=== PATIENT | female | born 1960 | race Hispanic/Latino ===

== ENCOUNTER 2017-08-12 15:54 | Emergency (ER) | payer SELFPAY ==
[2017-08-12] MEDS ORDERED: KETOROLAC TROMETHAMINE 30MG/ML ONE (16:34)
== END 2017-08-12 18:22 | disposition home or self-care (01) ==
LOC: EDH 15:54
DX: S63.591A Other specified sprain of right wrist, initial encounter (principal); S30.0XXA Contusion of lower back and pelvis, initial encounter; E11.9 Type 2 diabetes mellitus without complications; E78.5 Hyperlipidemia, unspecified; Z79.4 Long term (current) use of insulin; W01.0XXA Fall on same level from slipping, tripping and stumbling without subsequent striking against object, initial encounter; Y93.89 Activity, other specified; Y92.89 Other specified places as the place of occurrence of the external cause; Y99.8 Other external cause status
CPT/HCPCS: 72100; 73110; 96372; 99284; J1885

== ENCOUNTER 2017-08-29 21:27 | Emergency (ER) | payer SELFPAY ==
[2017-08-29] MEDS ORDERED: ONDANSETRON ODT 4 MG TAB ONE (22:20)
[2017-08-29] MEDS ORDERED: IPRATROPIUM/ALBUTEROL SULFATE 3 ML SOLUTION IH ONE (22:31)
== END 2017-08-29 23:05 | disposition home or self-care (01) ==
LOC: EDH 21:27
DX: J06.9 Acute upper respiratory infection, unspecified (principal); E11.9 Type 2 diabetes mellitus without complications; E78.5 Hyperlipidemia, unspecified; Z79.4 Long term (current) use of insulin
CPT/HCPCS: 71045; 87804; 93005; 94640

== ENCOUNTER 2018-04-24 21:01 | Emergency (ER) | payer SELFPAY ==
[2018-04-24] MEDS ORDERED: MAG HYDROX/AL HYDROX/SIMETH ES 30 ML SUSP UDCUP ONE (21:21)
[2018-04-24] MEDS ORDERED: BENZONATATE 100 MG CAPSULE PO ONE (21:21)
[2018-04-24] MEDS ORDERED: IPRATROPIUM/ALBUTEROL SULFATE 3 ML SOLUTION IH ONE (21:21)
[2018-04-24 21:44] LABS: BASOPHILS % (AUTO) 0.6 % (0.0-5.0); EOSINOPHILS % (AUTO) 2.3 % (0.0-8.0); HEMATOCRIT 37.4 % (36-48); LYMPHOCYTES % (AUTO) 35.8 % (21.0-51.0); MEAN CORPUSCULAR HEMOGLOBIN 33.3 pg (27.0-33.0); MEAN CORPUSCULAR HGB CONC 34.8 g/dL (32.0-36.0); MEAN CORPUSCULAR VOLUME 95.7 fL (79-99); MONOCYTES % (AUTO) 5.3 % (3.0-13.0); NUCLEATED RED BLOOD CELLS 0.1 % (0.0-0.19); PLATELET COUNT (AUTO) 236 K/uL (130-400); RED BLOOD CELL COUNT(AUTO) 3.91 MIL/uL (4.00-5.50); RED CELL DISTRIBUTION WIDTH 13.3 % (11.0-15.5); WHITE BLOOD COUNT (AUTO) 6.2 K/uL (4.8-10.8)
[2018-04-24 22:01] LABS: ALBUMIN 3.1 g/dL (3.5-5.0); BILIRUBIN,TOTAL 0.2 mg/dL (0.2-1.0); CREATININE 0.9 mg/dL (0.5-1.5); POTASSIUM 4.2 mmol/L (3.5-5.1); TOTAL PROTEIN, SERUM 8.2 g/dL (6.0-8.3)
[2018-04-24] MEDS ORDERED: IBUPROFEN 200 MG TAB ONE (22:34)
[2018-04-24] MEDS ORDERED: INSULIN HUMULIN R 100 UNIT/ML 3ML ONE (22:49)
== END 2018-04-25 00:46 | disposition home or self-care (01) ==
LOC: EDH 21:01
DX: R07.89 Other chest pain (principal); R05 Cough; J02.9 Acute pharyngitis, unspecified; R10.30 Lower abdominal pain, unspecified; E11.9 Type 2 diabetes mellitus without complications; E78.5 Hyperlipidemia, unspecified
CPT/HCPCS: 36415; 71045; 80053; 82948; 84484; 85025; 87880; 93005; 94640; 96374; 99285; J1815

== ENCOUNTER 2018-06-08 17:03 | Emergency (ER) | payer OTHER ==
[2018-06-08] MEDS ORDERED: LIDOCAINE HCL MPF 1% 5ML VIAL ONE (17:24)
== END 2018-06-08 18:03 | disposition home or self-care (01) ==
LOC: EDH 17:03
DX: N76.4 Abscess of vulva (principal); E11.9 Type 2 diabetes mellitus without complications; E78.5 Hyperlipidemia, unspecified; Z79.4 Long term (current) use of insulin
CPT/HCPCS: 56405; 99284; J3490

== ENCOUNTER 2018-10-03 20:09 | Emergency (ER) | payer OTHER ==
[2018-10-03 20:37] LABS: BASOPHILS % (AUTO) 0.5 % (0.0-5.0); EOSINOPHILS % (AUTO) 3.4 % (0.0-8.0); HEMATOCRIT 38.4 % (36-48); LYMPHOCYTES % (AUTO) 41.2 % (21.0-51.0); MEAN CORPUSCULAR HEMOGLOBIN 32.7 pg (27.0-33.0); MEAN CORPUSCULAR HGB CONC 34.6 g/dL (32.0-36.0); MEAN CORPUSCULAR VOLUME 94.5 fL (79-99); MONOCYTES % (AUTO) 8.2 % (3.0-13.0); NEUTROPHILS % (AUTO) 46.7 % (40.0-77.0); NUCLEATED RED BLOOD CELLS 0.2 % (0.0-0.19); PLATELET COUNT (AUTO) 178 K/uL (130-400); RED BLOOD CELL COUNT(AUTO) 4.06 MIL/uL (4.00-5.50); RED CELL DISTRIBUTION WIDTH 12.9 % (11.0-15.5); WHITE BLOOD COUNT (AUTO) 5.3 K/uL (4.8-10.8)
[2018-10-03 20:57] LABS: INR 0.92 (0.85-1.15); PARTIAL THROMBOPLASTIN TIME 24.5 SEC (26.3-35.5); PROTHROMBIN TIME 9.7 SEC (9.6-11.6)
[2018-10-03 22:07] LABS: CREATININE 0.7 mg/dL (0.5-1.5); POTASSIUM 4.6 mmol/L (3.5-5.1)
[2018-10-03] MEDS ORDERED: LORAZEPAM 2 MG/ML 1 ML VIAL ONE (22:07)
[2018-10-03] MEDS ORDERED: ONDANSETRON HCL 4 MG/2 ML VIAL ONE (22:07)
[2018-10-03] MEDS ORDERED: MORPHINE SULFATE 2 MG/ML 1ML SYG ONE (22:08)
[2018-10-03 22:17] LABS: ALBUMIN 3.6 g/dL (3.5-5.0); BILIRUBIN,TOTAL 0.3 mg/dL (0.2-1.0); TOTAL PROTEIN, SERUM 8.1 g/dL (6.0-8.3)
== END 2018-10-04 01:20 | disposition home or self-care (01) ==
LOC: EDH 20:09
DX: R07.89 Other chest pain (principal); F41.9 Anxiety disorder, unspecified; E11.9 Type 2 diabetes mellitus without complications; E78.5 Hyperlipidemia, unspecified
CPT/HCPCS: 36415; 71045; 80053; 82550; 83874; 84484 ×2; 85025; 85610; 85730; 93005 ×2; 96374; 96375 ×2; 99284; J2060; J2405

== ENCOUNTER 2018-12-21 12:36 | Emergency (ER) | payer OTHER ==
[2018-12-21] MEDS ORDERED: PROCHLORPERAZINE EDISYLATE 10 MG/2 ML VIAL ONE (13:05)
[2018-12-21] MEDS ORDERED: DIAZEPAM 5 MG TABLET ONE (13:06)
[2018-12-21 14:03] LABS: BASOPHILS % (AUTO) 0.6 % (0.0-5.0); EOSINOPHILS % (AUTO) 2.4 % (0.0-8.0); LYMPHOCYTES % (AUTO) 44.1 % (21.0-51.0); MEAN CORPUSCULAR HEMOGLOBIN 32.7 pg (27.0-33.0); MEAN CORPUSCULAR HGB CONC 34.4 g/dL (32.0-36.0); MEAN CORPUSCULAR VOLUME 95.1 fL (79-99); MONOCYTES % (AUTO) 9.8 % (3.0-13.0); NEUTROPHILS % (AUTO) 43.1 % (40.0-77.0); NUCLEATED RED BLOOD CELLS 0.2 % (0.0-0.19); PLATELET COUNT (AUTO) 218 K/uL (130-400); RED CELL DISTRIBUTION WIDTH 12.8 % (11.0-15.5); WHITE BLOOD COUNT (AUTO) 6.5 K/uL (4.8-10.8)
[2018-12-21 14:06] LABS: CREATININE 0.8 mg/dL (0.5-1.5); POTASSIUM 3.7 mmol/L (3.5-5.1)
[2018-12-21 14:11] LABS: ALBUMIN 3.2 g/dL (3.5-5.0); BILIRUBIN,TOTAL 0.5 mg/dL (0.2-1.0); TOTAL PROTEIN, SERUM 8.2 g/dL (6.0-8.3)
== END 2018-12-21 15:45 | disposition home or self-care (01) ==
LOC: EDH 12:36
DX: R51 Headache (principal); E11.9 Type 2 diabetes mellitus without complications; E78.5 Hyperlipidemia, unspecified; Z79.4 Long term (current) use of insulin
CPT/HCPCS: 36415; 80053; 82948 ×2; 85025; 96372; 99284; J0780

== ENCOUNTER 2019-01-08 14:53 | Emergency (ER) | payer SELFPAY ==
[2019-01-08 15:13] LABS: PLATELET COUNT (AUTO) 162 K/uL (130-400)
[2019-01-08 15:21] LABS: POTASSIUM 3.7 mmol/L (3.5-5.1)
[2019-01-08 15:26] LABS: ALBUMIN 3.5 g/dL (3.5-5.0); BILIRUBIN,TOTAL 0.4 mg/dL (0.2-1.0); TOTAL PROTEIN, SERUM 8.3 g/dL (6.0-8.3)
[2019-01-08 15:49] LABS: BASOPHILS % (AUTO) 0.7 % (0.0-5.0); EOSINOPHILS % (AUTO) 2.4 % (0.0-8.0); HEMATOCRIT 39.1 % (36-48); LYMPHOCYTES % (AUTO) 38.3 % (21.0-51.0); MEAN CORPUSCULAR HEMOGLOBIN 33.5 pg (27.0-33.0); MEAN CORPUSCULAR HGB CONC 34.7 g/dL (32.0-36.0); MEAN CORPUSCULAR VOLUME 96.6 fL (79-99); MONOCYTES % (AUTO) 7.2 % (3.0-13.0); NEUTROPHILS % (AUTO) 51.4 % (40.0-77.0); NUCLEATED RED BLOOD CELLS 0.2 % (0.0-0.19); RED BLOOD CELL COUNT(AUTO) 4.05 MIL/uL (4.00-5.50); RED CELL DISTRIBUTION WIDTH 12.9 % (11.0-15.5); WHITE BLOOD COUNT (AUTO) 4.6 K/uL (4.8-10.8)
[2019-01-08 15:50] LABS: INR 0.94 (0.85-1.15); PARTIAL THROMBOPLASTIN TIME 24.1 SEC (26.3-35.5); PROTHROMBIN TIME 9.9 SEC (9.6-11.6)
[2019-01-08] MEDS ORDERED: KETOROLAC TROMETHAMINE 30MG/ML ONE (16:11)
[2019-01-08] MEDS ORDERED: CYCLOBENZAPRINE HCL 10 MG TABLET ONE (16:11)
[2019-01-08] MEDS ORDERED: TRAMADOL HCL 50 MG TABLET ONE (16:12)
[2019-01-08] MEDS ORDERED: SODIUM CHLORIDE 0.9% 1000ML 1,000 ML IV ONE (16:12)
== END 2019-01-08 16:52 | disposition home or self-care (01) ==
LOC: EDH 14:53
DX: M25.512 Pain in left shoulder (principal); E11.65 Type 2 diabetes mellitus with hyperglycemia; E78.5 Hyperlipidemia, unspecified
CPT/HCPCS: 36415; 71045; 72125; 73030; 80053; 82550; 84484; 85025; 85610; 85730; 93005; 96361; 96374; 99285; J1885; J7030

== ENCOUNTER 2019-02-07 13:04 | Emergency (ER) | payer SELFPAY | END 2019-02-07 14:02 | disposition home or self-care (01) | LOC: EDH 13:04 | DX: M94.0 Chondrocostal junction syndrome [Tietze] (principal); J06.9 Acute upper respiratory infection, unspecified; E11.9 Type 2 diabetes mellitus without complications; E78.5 Hyperlipidemia, unspecified; Z98.890 Other specified postprocedural states ==

== ENCOUNTER 2019-09-01 15:15 | Emergency (ER) | payer SELFPAY ==
[2019-09-01 15:47] LABS: BASOPHILS % (AUTO) 0.7 % (0.0-5.0); HEMATOCRIT 35.4 % (36-48); LYMPHOCYTES % (AUTO) 47.3 % (21.0-51.0); MEAN CORPUSCULAR HEMOGLOBIN 31.5 pg (27.0-33.0); MEAN CORPUSCULAR HGB CONC 33.9 g/dL (32.0-36.0); MEAN CORPUSCULAR VOLUME 92.9 fL (79-99); MONOCYTES % (AUTO) 6.8 % (3.0-13.0); PLATELET COUNT (AUTO) 175 K/uL (130-400); RED BLOOD CELL COUNT(AUTO) 3.81 MIL/uL (4.00-5.50); RED CELL DISTRIBUTION WIDTH 12.5 % (11.0-15.5); WHITE BLOOD COUNT (AUTO) 4.3 K/uL (4.8-10.8)
[2019-09-01 15:58] LABS: CARBON DIOXIDE 26 mmol/L (21-32); CHLORIDE 104 mmol/L (101-111); CREATININE 0.9 mg/dL (0.5-1.5); GLOMERULAR FILTR. RATE CALC 68 mL/min (>60); GLUCOSE,RANDOM 279 mg/dL (70-105); POTASSIUM 3.7 mmol/L (3.5-5.1); SODIUM SERUM 139 mmol/L (136-145); UREA NITROGEN, BLOOD 18 mg/dL (7-18)
[2019-09-01 16:02] LABS: ALANINE AMINOTRANSFERASE 64 U/L (12-78); ALBUMIN 3.1 g/dL (3.5-5.0); ASPARTATE AMINOTRANSFERASE 55 U/L (10-37); BILIRUBIN,TOTAL 0.4 mg/dL (0.2-1.0); TOTAL PROTEIN, SERUM 7.8 g/dL (6.0-8.3)
[2019-09-01 16:31] LABS: CRP QUANTITATIVE < 2.00 mg/L (0.00-9.0)
== END 2019-09-01 17:41 | disposition home or self-care (01) ==
LOC: EDH 15:15
DX: M77.9 Enthesopathy, unspecified (principal); E11.9 Type 2 diabetes mellitus without complications; E78.5 Hyperlipidemia, unspecified; Z98.890 Other specified postprocedural states
CPT/HCPCS: 29125; 36415; 73130; 80053; 84550; 85025; 85651; 86140

== ENCOUNTER 2021-01-06 18:37 | Emergency (ER) | payer SELFPAY ==
[2021-01-06 19:03] LABS: APPEARANCE,URINE Clear (CLEAR); BILIRUBIN,URINE Negative (NEGATIVE); COLOR,URINE Yellow (YELLOW); GLUCOSE, URINE (UA) >=1000 mg/dL (NEGATIVE); KETONES,URINE Negative (NEGATIVE); LEUKOCYTE ESTERASE ,URINE Negative (NEGATIVE); NITRATE,URINE Negative (NEGATIVE); OCCULT BLOOD,URINE Negative (NEGATIVE); PH,URINE 5.5 (5.0-8.0); PROTEIN,URINE Negative (NEGATIVE); UROBILINOGEN,URINE 0.2 mg/dL (0.2-1.0)
[2021-01-06 19:08] LABS: BASOPHILS % (AUTO) 0.5 % (0.0-5.0); HEMATOCRIT 37.1 % (36-48); LYMPHOCYTES % (AUTO) 33.2 % (21.0-51.0); MEAN CORPUSCULAR HEMOGLOBIN 32.5 pg (27.0-33.0); MEAN CORPUSCULAR VOLUME 95.6 fL (79-99); MONOCYTES % (AUTO) 7.8 % (3.0-13.0); NEUTROPHILS % (AUTO) 56.2 % (40.0-77.0); PLATELET COUNT (AUTO) 196 K/uL (130-400); RED BLOOD CELL COUNT(AUTO) 3.88 MIL/uL (4.00-5.50); RED CELL DISTRIBUTION WIDTH 12.6 % (11.0-15.5); WHITE BLOOD COUNT (AUTO) 5.9 K/uL (4.8-10.8)
[2021-01-06 19:11] LABS: CREATININE 1.1 mg/dL (0.5-1.5); POTASSIUM 4.2 mmol/L (3.5-5.1)
[2021-01-06] MEDS ORDERED: LORAZEPAM 1 MG TABLET ONE (19:11)
[2021-01-06 19:15] LABS: ALBUMIN 3.2 g/dL (3.5-5.0); BILIRUBIN,TOTAL 0.3 mg/dL (0.2-1.0); TOTAL PROTEIN, SERUM 8.3 g/dL (6.0-8.3)
[2021-01-06 19:21] LABS: BACTERIA,URINE Moderate /HPF (None Seen); RBC,URINE 0-1 /HPF (0-1)
[2021-01-06 19:22] LABS: MUCUS,URINE Rare LPF (None Seen); SQUAMOUS EPITHELIAL CELL,UR 0-2 /HPF (0-2)
[2021-01-06] MEDS ORDERED: SODIUM CHLORIDE 0.9% 1000ML 1,000 ML IV ONE (19:46)
[2021-01-06] MEDS ORDERED: INSULIN HUMULIN R 100 UNIT/ML 3ML ONE (19:46)
== END 2021-01-06 21:23 | disposition home or self-care (01) ==
LOC: EDH 18:37
DX: F41.9 Anxiety disorder, unspecified (principal); R07.89 Other chest pain; E11.65 Type 2 diabetes mellitus with hyperglycemia; E78.5 Hyperlipidemia, unspecified
CPT/HCPCS: 36415; 71045; 80053; 81001; 82550; 82948; 84484; 85025; 87077; 87088; 87186; 93005; 96361; 96374; 99285; J1815; J7030

== ENCOUNTER 2021-09-07 15:23 | Emergency (ER) | payer SELFPAY ==
[~2021-09-07] VITALS: Ht 157.5 cm; Wt 63.5 kg
[~2021-09-07 15:23] MED LIST: CEFU500T67 PO; INSLAN SQ; INSU100V3 SQ; LISI10TA24 PO
[2021-09-07 15:52] LABS: BASOPHILS % (AUTO) 0.5 % (0.0-5.0); EOSINOPHILS % (AUTO) 1.6 % (0.0-8.0); HEMATOCRIT 36.2 % (36-48); LYMPHOCYTES % (AUTO) 47.3 % (21.0-51.0); MEAN CORPUSCULAR HEMOGLOBIN 32.6 pg (27.0-33.0); MEAN CORPUSCULAR HGB CONC 34.3 g/dL (32.0-36.0); MEAN CORPUSCULAR VOLUME 95.3 fL (79-99); MONOCYTES % (AUTO) 9.5 % (3.0-13.0); NEUTROPHILS % (AUTO) 40.9 % (40.0-77.0); PLATELET COUNT (AUTO) 162 K/uL (130-400); RED CELL DISTRIBUTION WIDTH 12.7 % (11.0-15.5); WHITE BLOOD COUNT (AUTO) 4.3 K/uL (4.8-10.8)
[2021-09-07 16:03] LABS: ALBUMIN 3.2 g/dL (3.5-5.0); BILIRUBIN,TOTAL 0.4 mg/dL (0.2-1.0); POTASSIUM 4.1 mmol/L (3.5-5.1)
[2021-09-07 16:20] VITALS: BP 115/64
[2021-09-07] MEDS ORDERED: INSULIN HUMULIN R 100 UNIT/ML 3ML SQ ONE (16:30)
[2021-09-07] MEDS ORDERED: BENZ-39 PO (17:46)
== END 2021-09-07 18:24 | disposition home or self-care (01) ==
LOC: EDH 15:23
DX: R07.89 Other chest pain (principal); R05.9 Cough, unspecified; E11.9 Type 2 diabetes mellitus without complications; Z79.4 Long term (current) use of insulin; Z79.899 Other long term (current) drug therapy
CPT/HCPCS: 36415; 71045; 80053; 84484; 85025; 93005; 99285; J1815

== ENCOUNTER 2023-01-17 16:17 | Emergency (ER) | payer OTHER ==
[~2023-01-17] VITALS: Ht 157.5 cm; Wt 63.5 kg
[~2023-01-17 16:17] MED LIST changes: +ASPI-1005 PO; +BENZ-39 PO; +CEPH500B PO; +CYCL-309 PO; +IBUP-2070 PO; +LIDOP TP; +MECL-226 PO; +MELO7.5T12 PO; +MOME17SP4 NS; +ONDA4TAB10 PO; +PRED20TA3 PO; +TRAM50TA2 PO
[2023-01-17 17:17] LABS: BASOPHILS % (AUTO) 0.4 % (0.0-5.0); EOSINOPHILS % (AUTO) 2.6 % (0.0-8.0); HEMATOCRIT 37.9 % (36-48); LYMPHOCYTES % (AUTO) 26.6 % (21.0-51.0); MEAN CORPUSCULAR HEMOGLOBIN 31.8 pg (27.0-33.0); MEAN CORPUSCULAR HGB CONC 33.2 g/dL (32.0-36.0); MEAN CORPUSCULAR VOLUME 95.7 fL (79-99); MONOCYTES % (AUTO) 7.7 % (3.0-13.0); NEUTROPHILS % (AUTO) 62.3 % (40.0-77.0); PLATELET COUNT (AUTO) 160 K/uL (130-400); RED BLOOD CELL COUNT(AUTO) 3.96 MIL/uL (4.00-5.50); RED CELL DISTRIBUTION WIDTH 12.8 % (11.0-15.5); WHITE BLOOD COUNT (AUTO) 5.3 K/uL (4.8-10.8)
[2023-01-17 17:31] LABS: CREATININE 0.9 mg/dL (0.5-1.5)
[2023-01-17 17:38] LABS: ALBUMIN 3.1 g/dL (3.5-5.0); TOTAL PROTEIN, SERUM 8.3 g/dL (6.0-8.3)
[2023-01-17 18:27] LABS: APPEARANCE,URINE CLEAR (CLEAR); BILIRUBIN,URINE NEGATIVE (NEGATIVE); COLOR,URINE LIGHT-YELLOW (YELLOW); GLUCOSE, URINE (UA) >=1000 mg/dL (NEGATIVE); KETONES,URINE NEGATIVE (NEGATIVE); LEUKOCYTE ESTERASE ,URINE NEGATIVE Leu/uL (NEGATIVE); NITRATE,URINE NEGATIVE (NEGATIVE); OCCULT BLOOD,URINE NEGATIVE (NEGATIVE); PROTEIN,URINE NEGATIVE (NEGATIVE); UROBILINOGEN,URINE 0.2 mg/dL (0.2-1.0)
[2023-01-17 18:28] LABS: BACTERIA,URINE RARE /HPF (None Seen); MUCUS,URINE RARE LPF (None Seen); RBC,URINE 0-1 /HPF (0-1); SQUAMOUS EPITHELIAL CELL,UR RARE /HPF (0-2)
[2023-01-17] MEDS ORDERED: 0.9%NACL 1000ML 2,000 ML IV ONE (19:00)
[2023-01-17 20:47] VITALS: BP 141/74
== END 2023-01-17 21:17 | disposition home or self-care (01) ==
LOC: EDH 16:17
DX: E86.0 Dehydration (principal); E11.9 Type 2 diabetes mellitus without complications; E78.00 Pure hypercholesterolemia, unspecified; Z79.82 Long term (current) use of aspirin; Z79.899 Other long term (current) drug therapy; Z98.890 Other specified postprocedural states
CPT/HCPCS: 99284; 96360; 70450; 96361; 84484; 80053; 85025; 87077; 87088; 87186; 82948; 81001; 36415; J7030

== ENCOUNTER 2023-03-29 18:24 | Emergency (ER) | payer OTHER ==
[~2023-03-29] VITALS: Ht 152.4 cm; Wt 59.0 kg
[2023-03-29 18:25] VITALS: BP 169/79; PULSE 78; RESP 18
== END 2023-03-29 21:11 | disposition left against medical advice (07) ==
LOC: EDH 18:24
DX: R68.84 Jaw pain (principal); Z53.21 Procedure and treatment not carried out due to patient leaving prior to being seen by health care provider
CPT/HCPCS: 84484; 93005; 99281

== ENCOUNTER 2023-04-27 15:51 | Emergency (ER) | payer OTHER ==
[~2023-04-27] VITALS: Ht 154.9 cm; Wt 63.5 kg
[2023-04-27 16:28] VITALS: BP 128/62; PULSE 77; RESP 16; O2SAT 97
== END 2023-04-27 21:57 | disposition left against medical advice (07) ==
LOC: EDH 15:51
DX: M79.642 Pain in left hand (principal); M79.641 Pain in right hand; Z53.21 Procedure and treatment not carried out due to patient leaving prior to being seen by health care provider
CPT/HCPCS: 99281

== ENCOUNTER 2023-08-27 18:22 | Emergency (ER) | payer BC, OTHER ==
[~2023-08-27] VITALS: Ht 157.5 cm; Wt 63.5 kg
[~2023-08-27 18:22] MED LIST changes: +NITR100C PO; +OSEL75 PO
[2023-08-27 18:35] VITALS: BP 146/81; PULSE 94; RESP 16; O2SAT 97
== END 2023-08-27 21:16 | disposition left against medical advice (07) ==
LOC: EDH 18:22
DX: M79.642 Pain in left hand (principal); Z53.21 Procedure and treatment not carried out due to patient leaving prior to being seen by health care provider

== ENCOUNTER 2023-09-06 11:27 | Emergency (ER) | payer BC ==
[~2023-09-06] VITALS: Ht 157.5 cm; Wt 61.2 kg
[2023-09-06] MEDS ORDERED: KETOROLAC 60 MG VIAL (30MG/ML) IM ONE (12:00)
[2023-09-06 12:08] VITALS: BP 113/60; PULSE 89; RESP 16
[2023-09-06] MEDS ORDERED: METH4TAB3 PO (13:06)
[2023-09-06] MEDS ORDERED: OMEP40CA21 PO (13:06)
[2023-09-06] MEDS ORDERED: IBUP-2070 PO (13:06)
== END 2023-09-06 13:50 | disposition home or self-care (01) ==
LOC: EDH 11:27
DX: M25.571 Pain in right ankle and joints of right foot (principal); E11.9 Type 2 diabetes mellitus without complications; E78.00 Pure hypercholesterolemia, unspecified; Z79.1 Long term (current) use of non-steroidal anti-inflammatories (NSAID); Z79.4 Long term (current) use of insulin; Z79.51 Long term (current) use of inhaled steroids; Z79.82 Long term (current) use of aspirin; Z79.899 Other long term (current) drug therapy
CPT/HCPCS: 99284; 73610; 96372; J1885

== ENCOUNTER 2024-02-23 12:18 | Emergency (ER) | payer BC ==
[~2024-02-23] VITALS: Ht 157.5 cm; Wt 59.0 kg
[~2024-02-23 12:18] MED LIST changes: +METH4TAB3 PO; +OMEP40CA21 PO; +ONDA-243 PO; -ONDA4TAB10 PO
[2024-02-23] MEDS: ACETAMINOPHEN 500 MG TABLET PO ONE (14:34)
[2024-02-23] MEDS: DEXAMETHASONE SOD PHOSPHATE 4 MG/ML 1ML VIAL IM ONE (14:35)
[2024-02-23 15:38] VITALS: BP 161/82; PULSE 78; RESP 14; O2SAT 97
== END 2024-02-23 15:39 | disposition home or self-care (01) ==
LOC: EDH 12:18
DX: M19.011 Primary osteoarthritis, right shoulder (principal); E11.9 Type 2 diabetes mellitus without complications; E78.00 Pure hypercholesterolemia, unspecified; Z79.82 Long term (current) use of aspirin; Z79.899 Other long term (current) drug therapy; Z98.890 Other specified postprocedural states
CPT/HCPCS: 99284; 73030; 96372; J1100